=== PATIENT | female | born 1950 | race Caucasian/White ===

== ENCOUNTER 2023-07-12 15:15 | Emergency (ER) | payer OTHER ==
[~2023-07-12] VITALS: Ht 160 cm; Wt 110.7 kg
[2023-07-12 15:43] VITALS: BP 150/79; PULSE 95; RESP 18; TEMP 98.1; O2SAT 95
[2023-07-12] MEDS ORDERED: TETRACAINE HCL/PF 0.5% OPTH 4 ML BTL OP ONE (16:00)
[2023-07-12] MEDS ORDERED: FLUORESCEIN OPTH STRIP 1 MG OP ONE (16:00)
[2023-07-12] MEDS ORDERED: TOMOMETER 1 DEV DEV MC ONE (16:53)
[2023-07-12] MEDS ORDERED: VIGOS OP (18:02)
[2023-07-12 18:10] VITALS: BP 134/79; PULSE 85; RESP 18
== END 2023-07-12 18:11 | disposition home or self-care (01) ==
LOC: MED 15:15
DX: H16.001 Unspecified corneal ulcer, right eye (principal); I10 Essential (primary) hypertension; M06.9 Rheumatoid arthritis, unspecified; Z79.2 Long term (current) use of antibiotics; Z88.1 Allergy status to other antibiotic agents; Z88.2 Allergy status to sulfonamides
CPT/HCPCS: 99283